=== PATIENT | female | born 1960 | race Asian ===

== ENCOUNTER 2016-06-04 11:54 | Emergency (ER) | payer OTHER ==
[~2016-06-04] VITALS: Wt 76.0 kg
[~2016-06-04 11:54] MED LIST: ALBU8.5H3; FLUT12HF
[2016-06-04] MEDS ORDERED: KETOROLAC 60 MG INJ IM STA (12:46)
[2016-06-04] MEDS ORDERED: HYDR-906 PO (12:48)
[2016-06-04] MEDS ORDERED: NAPR-260 PO (12:48)
--- NOTE | 2016-06-04 15:51 | ERD ---
DATE OF SERVICE: HISTORY OF PRESENT ILLNESS: The patient is a 56-year-old female complaining of leg pain for 3 days. The patient states that she has burning sensation going down the back of her left leg. She takes ibuprofen with no alleviation, no fevers, no traumatic injuries, no numbness or tingling down her le g. She has no abdominal pain, no change in urination or bowel movements. No saddle anesthesia. MEDICAL HISTORY: Asthma. ALLERGIES TO MEDICATIONS: DENIES. SURGICAL HISTORY: Hysterectomy. SOCIAL HISTORY: Denies. REVIEW OF SYSTEMS: A 12-point review of systems was done. Refer to HPI for positives, all other sy stems negative. PHYSICAL EXAMINATION VITAL SIGNS: Temperature is 98, pulse 87, blood pressure 133/83, respiratory 18, O2 saturation 99% on room air. Pain intensity is 0/10. GENERAL: The patient is well-appearing, well-nourished, no acute distress. HEENT: Atraumatic. Conjunctivae are pink. Pupils equal, round, and reactive to light. There is no s cleral icterus. Tympanic membranes clear bilaterally. Oropharynx clear. No nystagmus or photophobia . CHEST: Clear to auscultation bilaterally. There are no rales, wheezes or rhonchi. HEART: Regular rate and rhythm. No murmurs, clicks, rubs or gallops. No S3 or S4. EXTREMITIES: Equal pulses bilaterally. There is no peripheral clubbing, cyanosis or edema. No focal swelling or erythema. Full range of motion. Grossly neurovascularly intact. SKIN: There is no apparent rash or petechia. The skin is warm and dry. DIAGNOSIS: Sciatica. MEDICAL DECISION MAKING: I have low suspicion for cauda equina. Low suspicion for diskitis. Low s uspicion for epidural abscess. Low suspicion for shingle, low suspicion for acute fracture or dislo cation of the hip. Patient's exam was indicative of his sciatic pain and I do not feel there is ind ication for blood work or imaging at this time. EMERGENCY ROOM COURSE: The patient was given Toradol in the ER. DISCHARGE: The patient is discharged stable. Patient given prescription for Beulah and naproxen and told to follow up with primary care within 1 to 2 days for reevaluation. The patient was told if s ymptoms progress or worsen to return to the ER. All other questions answered at time of discharge. Discharge summary given at the time of departure. Patient understood and complied with plan. Dictated By: RUSSELL LEPE for RIVERA EDMONDSON/JASON Conf#: [id number] DID#: [id number]
== END 2016-06-04 13:23 | disposition home or self-care (01) ==
LOC: FTE 11:54
DX: M54.32 Sciatica, left side (principal); J45.909 Unspecified asthma, uncomplicated
CPT/HCPCS: 96372; J1885; Z7502

== ENCOUNTER 2016-09-05 17:01 | Emergency (ER) | payer OTHER ==
[~2016-09-05] VITALS: Ht 162.6 cm; Wt 75.5 kg
[~2016-09-05 17:01] MED LIST changes: +HYDR-906 PO; +NAPR-260 PO
[2016-09-05 17:03] VITALS: Ht 162.6 cm; Wt 75.5 kg
[2016-09-05] MEDS ORDERED: HYDROCODONE/APAP (5/325) TAB PO ONE (19:00)
--- NOTE | 2016-09-05 19:27 | RADRPT ---
PROCEDURE: XR Lumbar Spine. CLINICAL INDICATION: Low back pain. TECHNIQUE: AP and lateral views of the lumbar spine were obtained. COMPARISON: None. FINDINGS: Mineralization is within normal limits. Vertebral bodies are normal in height. No fracture is iden tified. Lumbar lordosis is straightened. Small endplate Schmorl's nodes involving the L3 vertebral body and inferior L2 end plate are suggested. No vertebral subluxation is seen. Mild narrowing of the L4-5 and L5-S1 discs is suggested. The remaining intervertebral discs are normal in height. Par aspinal contours are unremarkable. RPTAT:HJJR IMPRESSION: 1. Lordotic straightening possibly positioning but unable to exclude muscle spasm. 2. Small endplate Schmorl's nodes at L2 and L3. 3. Mild disk space narrowing and L4-5 and L5-S1. Physician Kandace Date Time Electronically viewed and signed by Physician Kandace on 09/05/2016 19:27 /
--- NOTE | 2016-09-05 19:50 | ERA ---
ER Documentation Chief Complaint Date/Time DATE: 09/05/16 TIME: 19:44 Chief Complaint BIB DAUGHTER C/O LEFT LEG PAIN RADIAITING TO LEFT THIGH. NO TRAUMA HPI This is a 56-year-old female presented with a chief complaint of back pain that is radiating down to the left leg. Patient has history of sciatica. Movement makes the pain worse and sitting still relieves the pain. Patient has taken NSAIDs with mild relief. Patient denies any other medical history. Patient is presented with the daughter who is the genetic technologist and seems reliable. Patient denies constant pain lasting more than 6 weeks; Denies saddle paraesthesia, incontinence, RPND, or pain exacerbated by Valsalva; Denies fever, chills, night sweats, weight loss, or increase symptoms at night. Patient also denies h/ o cardiovascular dz, disk herniation, spinal stenosis, fibromyalgia, cancer, HIV , IVDU, arthritis or recent surgery. ROS All systems reviewed and are negative except as per history of present illness. Medications Home Meds Active Scripts Ibuprofen* (Motrin*) 600 Mg Tab, 600 MG PO Q6, #30 TAB Prov:CATHIE HERNDON PA-C 09/05/16 Cyclobenzaprine Hcl* (Cyclobenzaprine Hcl*) 5 Mg Tablet, 5 MG PO Q8H Y for PAIN , #60 TAB Prov:CATHIE HERNDON PA-C 09/05/16 Naproxen* (Naprosyn*) 500 Mg Tablet, 500 MG PO BID Y for PAIN AND/OR INFLAMMATION, #30 TAB Prov:HORACIO ARCHIBALD PA-C 06/04/16 Hydrocodone/Acetaminophen (Clifton 5-325 Tablet) 1 Each Tablet, 1 TAB PO Q6H Y for PAIN, #15 TAB Prov:HORACIO ARCHIBALD PA-C 06/04/16 Reported Medications Albuterol Sulfate* (Proair HFA*) 8.5 Gm Hfa.aer.ad 03/03/11 Salmeterol Xinaf-Fluticasone* (Advair HFA*) 12 Gm Aer.w.adap 03/03/11 Allergies Allergies: Coded Allergies: No Known Allergy (Unverified , 03/03/11) PMhx/Soc History of Surgery: Yes (Ovarian) Anesthesia Reaction: No Hx Neurological Disorder: No Hx Respiratory Disorders: Yes (Asthma) Hx Cardiac Disorders: No Hx Psychiatric Problems: No Hx Miscellaneous Medical Probl: Yes (Sciatica) Hx Alcohol Use: No Hx Substance Use: No Hx Tobacco Use: No Smoking Status: Never smoker Physical Exam Vitals Vital Signs Date Time Temp Pulse Resp B/P Pulse Ox O2 Delivery O2 Flow Rate FiO2 09/05/16 17:03 98.8 96 18 132/80 97 Physical Exam Const: Overweight older looking 56-year-old female presenting with daughter Head: Atraumatic Eyes: Normal Conjunctiva ENT: Normal External Ears, Nose and Mouth. Neck: Full range of motion..~ No meningismus. Resp: Clear to auscultation bilaterally Cardio: Regular rate and rhythm, no murmurs Abd: Soft, non tender, non distended. Normal bowel sounds Skin: No petechiae or rashes Back: Positive straight leg raise. Decreased motion secondary to pain. No midline or flank tenderness Ext: No cyanosis, or edema Neur: Awake and alert Psych: Normal Mood and Affect Results 24 hrs Current Medications Medications (Trade) Dose Ordered Sig/Korin Route PRN Reason Start Time Stop Time Status Last Admin Dose Admin Acetaminophen/ Hydrocodone Bitart (Clifton (5/325)) 1 tab ONCE ONCE PO 09/05/16 19:00 09/05/16 19:01 DC 09/05/16 20:08 Procedures/MDM Patient was evaluated and worked up for acute lower back pain. Physical exam was remarkable for positive straight leg raise of the left side and decreased range of motion secondary to pain. Patient was given Clifton in the ED with moderate symptom relief. Workup due to age and return visit included an x-ray that was read by the radiologist and given the following impression: IMPRESSION: 1. Lordotic straightening possibly positioning but unable to exclude muscle spasm. 2. Small endplate Schmorl's nodes at L2 and L3. 3. Mild disk space narrowing and L4-5 and L5-S1. . Most likely diagnosis at this time is muscle spasm exacerbating sciatica. Thus, the treatment plan will include Flexeril and ibuprofen for discomfort. At this time I do not suspect cauda equina syndrome, spinal cord compression, aortic aneurysm, aortic dissection, epidural abscess, spinal hematoma, malignancy, kidney stones or pyelonephritis. I reviewed this case with my attending Dr. Moody who agrees with the assessment and plan. I have spoke with the patient regarding their condition and future management. They have verbally responded that they understand their status and treatment plan. The patients vitals are stable, and their current condition is appropriate for discharge. The patient will be given discharge instructions with return precautions. Departure Diagnosis: Primary Impression: Back muscle spasm Additional Impression: Sciatica of left side Condition: Stable Additional Instructions: Follow up with your PCP within the next 1-3 days for a more thorough evaluation and a possible referral to a specialist. Return the the emergency department immediately if symptoms worsen or change. If you have any questions regarding medications, ask your pharmacist or us before you leave. If any adverse reactions occur while taking your medications, discontinue the treatment and return to the emergency department immediately. Take your medications as directed, and complete the entire course of treatment. CATHIE HERNDON PA-C Sep 05, 2016 19:50
[2016-09-05] MEDS ORDERED: CYCL5TAB PO (20:16)
[2016-09-05] MEDS ORDERED: IBUP-1542 PO (20:16)
[2016-09-05 20:31] VITALS: BP 135/84; PULSE 88; RESP 18; TEMP 98.8
[2016-09-06] MEDS ORDERED: DIAZ-90 PO (08:02)
[2016-09-06] MEDS ORDERED: NAPR-260 PO (08:03)
[2016-09-06] MEDS ORDERED: OMEP20CA16 PO (08:06)
[2016-09-06] MEDS ORDERED: MED4DP PO (08:06)
[2016-09-06] MEDS ORDERED: FAMO-18 PO (08:07)
== END 2016-09-05 20:32 | disposition home or self-care (01) ==
LOC: FTE 17:01
DX: M62.830 Muscle spasm of back (principal); M54.32 Sciatica, left side; J45.909 Unspecified asthma, uncomplicated
CPT/HCPCS: 72100; Z7502; Z7610

== ENCOUNTER 2016-09-06 07:13 | Emergency (ER) | payer OTHER ==
[~2016-09-06] VITALS: Wt 80.0 kg
[~2016-09-06 07:13] MED LIST changes: +CYCL5TAB PO; +IBUP-1542 PO
[2016-09-06] MEDS ORDERED: KETOROLAC 30 MG INJ IM STA (07:50)
[2016-09-06] MEDS ORDERED: DIAZEPAM 5 MG/ML SYG IM STA (07:50)
[2016-09-06] MEDS ORDERED: DIAZ-90 PO (08:02)
[2016-09-06] MEDS ORDERED: NAPR-260 PO (08:03)
[2016-09-06] MEDS ORDERED: OMEP20CA16 PO (08:06)
[2016-09-06] MEDS ORDERED: MED4DP PO (08:06)
[2016-09-06] MEDS ORDERED: FAMO-18 PO (08:07)
--- NOTE | 2016-09-06 08:27 | ERD ---
ER Documentation Chief Complaint Date/Time DATE: 09/06/16 TIME: 08:17 Chief Complaint low back pain non traumatic seen yesterday for same, no improvement HPI This is a 56-year-old female presenting to the emergency department complaining of left lumbar back pain that radiates down her left leg for the past few months. Patient states that she has been here in May for the same complaint and also yesterday. Patient states that she was given Flexeril and ibuprofen without any relief. Patient states the pain is constant, 8 out of 10 increased with movement. She denies any bladder or bowel incontinence. She denies any saddle anesthesia. She states ibuprofen was taken at 3 AM ROS All systems reviewed and are negative except as per history of present illness. Medications Home Meds Active Scripts Famotidine* (Pepcid*) 20 Mg Tablet, 20 MG PO DAILY, #20 TAB Prov:CHAVEZ CENTENO PA-C 09/06/16 Methylprednisolone* (Medrol* DOSE PACK) 4 Mg/Dose-Pack Tab.ds.pk, 4 MG PO . DIRECTED, #1 PACKET Prov:CHAVEZ CENTENO PA-C 09/06/16 Naproxen* (Naprosyn*) 500 Mg Tablet, 500 MG PO BID Y for PAIN AND/OR INFLAMMATION, #30 TAB Prov:CHAVEZ CENTENO PA-C 09/06/16 Diazepam* (Valium*) 5 Mg Tablet, 5 MG PO Q8 Y for mucles spans, #30 TAB Prov:CHAVEZ CENTENO PA-C 09/06/16 Ibuprofen* (Motrin*) 600 Mg Tab, 600 MG PO Q6, #30 TAB Prov:CATHIE HERNDON PA-C 09/05/16 Cyclobenzaprine Hcl* (Cyclobenzaprine Hcl*) 5 Mg Tablet, 5 MG PO Q8H Y for PAIN , #60 TAB Prov:CATHIE HERNDON PA-C 09/05/16 Naproxen* (Naprosyn*) 500 Mg Tablet, 500 MG PO BID Y for PAIN AND/OR INFLAMMATION, #30 TAB Prov:HORACIO ARCHIBALD PA-C 06/04/16 Hydrocodone/Acetaminophen (Peerless 5-325 Tablet) 1 Each Tablet, 1 TAB PO Q6H Y for PAIN, #15 TAB Prov:HORACIO ARCHIBALD PA-C 06/04/16 Reported Medications Albuterol Sulfate* (Proair HFA*) 8.5 Gm Hfa.aer.ad 03/03/11 Salmeterol Xinaf-Fluticasone* (Advair HFA*) 12 Gm Aer.w.adap 03/03/11 Allergies Allergies: Coded Allergies: No Known Allergy (Unverified , 03/03/11) PMhx/Soc Medical and Surgical Hx: pt denies Medical Hx, pt denies Surgical Hx History of Surgery: Yes (Ovarian) Anesthesia Reaction: No Hx Neurological Disorder: No Hx Respiratory Disorders: Yes (Asthma) Hx Cardiac Disorders: No Hx Psychiatric Problems: No Hx Miscellaneous Medical Probl: Yes (Sciatica) Hx Alcohol Use: No Hx Substance Use: No Hx Tobacco Use: No Smoking Status: Never smoker Physical Exam Vitals Vital Signs Date Time Temp Pulse Resp B/P Pulse Ox O2 Delivery O2 Flow Rate FiO2 09/06/16 07:19 98.0 81 20 141/83 96 Physical Exam GENERAL: WD/WN, in no apparent distress, non-toxic appearing HENT: NC/AT EYES: Conjunctiva normal NECK: Supple PULM: Normal labored breathing CV: Good capillary refill GI: Non-distended, no guarding BACK: no deformities noted, normal spinal curvature, TTP on left lumbar region, + left straight leg raise EXT: No clubbing, cyanosis, or edema NEURO: Moves on all fours, sensation intact, normal gait SKIN: intact PSYCH: Normal mood Results 24 hrs Current Medications Medications (Trade) Dose Ordered Sig/Korin Route PRN Reason Start Time Stop Time Status Last Admin Dose Admin Diazepam (Valium) 10 mg ONCE STAT IM 09/06/16 07:50 09/06/16 07:51 DC 09/06/16 08:10 Ketorolac Tromethamine (Toradol) 30 mg ONCE STAT IM 09/06/16 07:50 09/06/16 07:51 DC 09/06/16 07:58 Procedures/MDM This is a 56-year-old female presenting to the emergency room complaining of left lumbar back pain with sciatica. Patient has been evaluated by this facility yesterday as well and received an x-ray which radiologist stated - 1. Lordotic straightening possibly positioning but unable to exclude muscle spasm. 2. Small endplate Schmorl's nodes at L2 and L3. 3. Mild disk space narrowing and L4-5 and L5-S1. Patient was found to have small endplate Schmorl's nodes and mild disc space narrowing on x-ray. Patient received Flexeril and ibuprofen, patient presents again today saying that the medications have not helped her pain. In the ED patient was given Toradol and 10 mg IM of Valium. I discussed with patient that she is best suitable to follow-up with orthopedist as an outpatient for physical therapy and further evaluation management. I have given her a prescription for naproxen, Valium, Medrol Dosepak and Pepcid for GI effects. Patient is neurovascular intact and healing stable for discharge for home to follow-up with orthopedist. Discussed return to the ER for any worsening sinus symptoms patient understands and agrees with this plan Departure Diagnosis: Primary Impression: Sciatica Laterality: left Qualified Code: M54.32 - Sciatica of left side Additional Impression: Back pain Back pain location: low back pain Chronicity: acute Back pain laterality: left Sciatica presence: with sciatica Sciatica laterality: sciatica of left side Qualified Code: M54.42 - Acute left-sided low back pain with left-sided sciatica Condition: Stable Patient Instructions: Back Pain (Acute Or Chronic), Back Pain W/ Sciatica Referrals: YAIMA PIPER (PCP) Additional Instructions: FOLLOW UP WITH YOUR PRIMARY CARE PHYSICIAN TOMORROW.Return to this facility if you are not improving as expected. You need to see Take all medicines as directed. Return to this facility if you are not improving as expected. You have been given a medicine which may cause drowsiness.DO NOT DRIVE OR OPERATE DANGEROUS MACHINERY while taking this medicine! CHAVEZ CENTENO PA-C Sep 06, 2016 08:27
== END 2016-09-06 09:21 | disposition home or self-care (01) ==
LOC: FTE 07:13
DX: M54.42 Lumbago with sciatica, left side (principal); J45.909 Unspecified asthma, uncomplicated
CPT/HCPCS: 96372; J1885; J3360; Z7502

== ENCOUNTER 2017-06-04 07:20 | Emergency (ER) | END 2017-06-04 10:48 | disposition home or self-care (01) ==

== ENCOUNTER 2017-12-05 11:45 | Emergency (ER) | END 2017-12-05 16:47 | disposition home or self-care (01) ==